=== PATIENT | male | born 1970 | race Caucasian/White ===

== ENCOUNTER 2019-08-21 18:59 | Emergency (ER) | payer BC, OTHER ==
[2019-08-21 19:13] VITALS: RESP 18; TEMP 99.2
[2019-08-21] MEDS ORDERED: DIPH,PERTUS(ACELL)TETVAC-LF 0.5 ML VIAL IM ONE (19:23)
[2019-08-21] MEDS ORDERED: LIDOCAINE 1% INJ 10MG/ML (20 ML MDV) SQ STA (19:23)
[2019-08-21] MEDS ORDERED: ACETAMINOPHEN TAB 325 MG TAB PO STA (19:23)
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
[2019-08-21] MEDS ORDERED: CEPHALEXIN 500 MG CAP PO STA (19:59)
[2019-08-21 20:45] VITALS: BP 144/80; PULSE 110
[2019-08-21] MEDS ORDERED: MORPHINE SULFATE 4 MG/ML SYRINGE IM STA (21:51)
[2019-08-21] MEDS ORDERED: ACET/COD 300 MG/30 MG STARTER PACK 6 TAB BTL PO STA (22:01)
[2019-08-21] MEDS ORDERED: AMOXIC-POT CLAV 875MG STARTER PACK 2 TAB BTL PO STA (22:01)
== END 2019-08-21 22:11 | disposition home or self-care (01) ==
LOC: EC 18:59
DX: S02.32XA Fracture of orbital floor, left side, initial encounter for closed fracture (principal); S02.40DA Maxillary fracture, left side, initial encounter for closed fracture; Q78.0 Osteogenesis imperfecta; Y04.0XXA Assault by unarmed brawl or fight, initial encounter
CPT/HCPCS: 70486; 70450; 90715; 99284; 12001; 90471; 96372; J2270; J2001